=== PATIENT | male | born 1960 | race Caucasian/White ===

== ENCOUNTER 2020-07-19 13:55 | Outpatient (CLI) | payer BC, SELFPAY ==
--- NOTE | ~2020-07-19 | US_ITS ---
EXAMINATION: US art doppler w press LE BI DATE: 07/19/2020 15:06 INDICATION: Claudication TECHNIQUE: Segmental pressures and plethysmographic and Doppler waveforms of the brachial and lower e xtremity arteries were obtained. COMPARISON: None. FINDINGS: Right and left brachial artery pressures of 123 mm Hg and 129 mm Hg, respectively, are concordant (no rmal difference <= 30 mmHg). The right and left high-thigh pressure indices are 1.12 and 1.33, respec tively (normal > 1.2). The right ankle-brachial index (FARZANA) is 1.21 (normal >= 0.9-1). The right great toe-brachial index (T BI) is 0.83 (normal >= 0.6-0.8). The right lower extremity segmental pressure gradients are normal (n ormal gradients <= 20-30 mmHg between adjacent levels on the same leg or the same levels on the two l egs). Arterial waveforms are triphasic with brisk systolic upstrokes throughout. The left FARZANA is 1.14. The left TBI is 0.63. The left lower extremity segmental pressure gradients are normal. Arterial waveforms are triphasic with brisk systolic upstrokes throughout. IMPRESSION: 1. Normal FARZANA's and TBI's bilaterally. No significant occlusive disease. Reviewed, dictated and finalized at location A.
== END 2020-07-19 13:56 | disposition home or self-care (01) ==
PROVIDERS: PCP Internal Medicine Geriatric Medicine; Visit Provider Internal Medicine Cardiovascular Disease
DX: I73.9 Peripheral vascular disease, unspecified (principal); Z86.73 Personal history of transient ischemic attack (TIA), and cerebral infarction without residual deficits
CPT/HCPCS: 93923

== ENCOUNTER 2023-08-08 01:17 | Day surgery (SDC) | payer BC, SELFPAY ==
[2023-08-08] VITALS (14 sets, daily range): BP systolic 108–152; BP diastolic 77–92; PULSE 75–91; RESP 12–20; TEMP 36.5; O2SAT 95–100; BMI 26.1
--- NOTE | 2023-08-08 09:02 | WPDHPUPDATE1 ---
History and Physical Update Update Date/Time: 08/08/23 09:02 History and Physical has been reviewed, including an updated exam of the patient. There are NO changes in the patient's condition. Risks, benefits, and alternatives have been discussed and questions answered. Patient agrees to proceed with procedure.
--- NOTE | 2023-08-08 09:02 | WPDMODSED ---
Moderate Sedation Note-Pt Data Patient Data Diagnosis: Mitral valve prolapse, mitral regurgitation Present Complaint: None Procedure to be performed/Plan: Transesophageal echocardiogram Allergies Allergy/AdvReac Type Severity Reaction Status Date / Time No Known Allergies Allergy Unverified 08/08/23 07:15 Home Medications Medication Instructions Recorded Confirmed Type amitriptyline 25 mg tablet 25 mg PO HS 08/07/23 08/07/23 History aspirin 81 mg tablet,delayed 81 mg PO HS 08/07/23 08/08/23 History release atorvastatin 80 mg tablet 80 mg PO HS 08/07/23 08/07/23 History citalopram 40 mg tablet 40 mg PO DAILY 08/07/23 08/07/23 History cyanocobalamin (vitamin B-12) 1,000 mcg IM MONTHLY 08/07/23 08/07/23 History 1,000 mcg/mL injection solution docusate sodium 50 mg/5 mL oral 100 mg PO HS PRN Constipation 08/07/23 08/07/23 History liquid ergocalciferol (vitamin D2) 1,250 50,000 unit PO WEEKLY 08/07/23 08/07/23 History mcg (50,000 unit) capsule lansoprazole 30 mg capsule,delayed 30 mg PO BID 08/07/23 08/07/23 History release melatonin 10 mg tablet 20 mg PO HS PRN Insomnia 08/07/23 08/07/23 History meloxicam 15 mg tablet 15 mg PO DAILY PRN Pain 08/07/23 08/07/23 History ramipril 2.5 mg capsule 205 mg PO DAILY 08/07/23 08/07/23 History tamsulosin 0.4 mg capsule 0.4 mg PO DAILY 08/07/23 08/07/23 History tramadol 50 mg tablet 50 mg PO Q4-6H PRN Pain 08/07/23 08/07/23 History zolpidem 5 mg tablet 25 mg PO HS PRN Insomnia 08/07/23 08/07/23 History Current Medications: Active Medications Sodium Chloride (Normal Saline Iv) 1,000 mls @ 30 mls/hr IV CONT .Q24H RHEA Sedation/Anesthesia: No previous sedation/anesthesia problems (including family history). [facility] Past Medical History Medical History (Updated 08/08/23 @ 09:04 by Angel Chiang MD) Mitral regurgitation Mitral valve prolapse Family History Family History Father Hypertension Other Diabetes mellitus Family history of cardiovascular disease Social History Social History Smoking status: Never smoker Alcohol intake: never Substance use type: marijuana Other substance usage details: pot gummies Living arrangements: with family Spiritual care concerns: No Mod Sed Physical Exam Physical Exam Pre Procedural Exam: Normal: Appearance, Eyes, Ears, Nose, Neck (Supple, normal range of motion), Throat (Posterior hypopharynx clear, nonerythematous), Airway (Normal anatomy, no obstruction), Lungs (Clear to auscultation bilaterally), Heart Size (Systolic murmur), Heart Rate, Heart Rhythm, Neuro Exam, Abdomen, Liver, Extremities and Skin Hours since solid foods: 12 Hours since liquid intake: 12 Mallampati Classification: class III Internal Medicine - PN: Obj Da Vital Signs Vital Signs: Vital Signs - 24 hr 08/08/23 07:17 Temperature 36.5 C Pulse Rate 88 Respiratory Rate 15 Blood Pressure 145/89 H Pulse Oximetry 98 Oxygen Delivery Room Air Meds/Results Medications: Active Medications Generic Name Dose Route Start Last Admin Trade Name Freq PRN Reason Stop Dose Admin Sodium Chloride 1,000 mls @ 30 mls/hr 08/08/23 07:30 Normal Saline Iv IV CONT .Q24H RHEA ASA Classification/Sedation ASA Classification/Sedation ASA Class: III Emergent: No Risks: Risks, benefits and alternatives explained and patient/family accepted plan for sedation. Patient re-evaluated immediately prior to sedation.
--- NOTE | 2023-08-08 14:29 | WPDTEECHO ---
[facility] TransEsophageal Echocardiogram Date of procedure: 08/08/23 Procedure Type: Transesophageal echocardiogram Diagnosis: Mitral valve prolapse, mitral regurgitation Indications: Mitral regurgitation, shortness of breath Image Quality: Technically difficult Findings: Brief history present illness: Patient is a pleasant 62-year-old male with a past medical history significant for mitral valve prolapse with mitral regurgitation, prior history of CVA, hypertension, hyperlipidemia who presents with progressive fatigue, exertional dyspnea and intermittent chest pain who underwent noninvasive ischemic evaluation which was not suggestive of myocardial ischemia yet 2D echocardiogram obtained interpreted as having severe mitral regurgitation. As such, patient was subsequently referred for transesophageal echocardiogram to clarify severity of mitral regurgitation. Procedure in detail: After verbal and written informed consent was obtained the patient risks, benefits, and alternatives explained in detail the patient agreed to proceed with the plan of care as outlined above. The patient was evaluated at bedside in the [facility] procedure room. The posterior oropharynx, neck, and jaw angle all within normal limits on examination. Lungs were clear to auscultation. See pre-sedation note for further details The patient was then placed in the appropriate 30 to 45 degree angle supine position at a slight left lateral decubitus position. Patient was monitored throughout the study with telemetry, oxygen saturation, end-tidal CO2 monitoring, blood pressure, heart rate, and respirations. The posterior hypopharynx was then locally anesthetized using repeated administration of Hurricaine spray as well as gargled viscous lidocaine. After local anesthetic of the posterior hypopharynx was achieved and the oral bite block placed, moderate sedation was administered. After confirmation of adequate moderate sedation, the transesophageal echocardiogram probe was advanced through the oral bite block into the posterior hypopharynx and into the esophagus easily and without complication. Multiple, multiplanar echocardiographic images were obtained in multiple standard re- projections. Pulsed wave, continuous-wave, and color-flow Doppler were utilized in conjunction with this study. At the conclusion of the study, the transesophageal echocardiogram probe was removed easily and without complication. The patient tolerated the procedure well without difficulty. Patient was in sinus rhythm throughout the study. Moderate Sedation/Anesthesia administration: Patient reports no prior problems with sedation/anesthesia. Please see pre-sedation noted for physical examination documentation. As noted above, after adequate local anesthesia of the posterior hypopharynx was achieved, a total of 3 mg intravenous Versed and a total of 75 mcg intravenous Fentanyl in multiple divided doses was administered for moderate sedation. Sedation start time was 0910 and end time was 0950 for a total intra-service/procedure face-face time of 40 minutes. Sedation was administered by a qualified/certified observer Vanesa Mandel RN under my supervision with intra-procedure [id number] observation and management throughout the entirety of the procedure. There were no other issues or complications and patient tolerated the procedure well. See post-anesthesia documentation. FINDINGS: LEFT VENTRICLE: Size and systolic function were within normal limits without wall motion abnormalities with ejection fraction of 65% and mild concentric left ventricular hypertrophy. RIGHT VENTRICLE: Size and systolic function within normal limits. LEFT ATRIUM: Mild to moderately enlarged. RIGHT ATRIUM: Normal size. INTERATRIAL SEPTUM: Interatrial septum was difficult to visualize, however, appeared to be anatomically normal without evidence of shunt with color-flow Doppler. MITRAL VALVE: Mitral valve appears
== END 2023-08-08 11:15 | disposition home or self-care (01) ==
PROVIDERS: PCP Internal Medicine Geriatric Medicine; Visit Provider Internal Medicine Cardiovascular Disease
PROC: (CPT 93312; principal; 2023-08-08 08:30)
DX: I08.3 Combined rheumatic disorders of mitral, aortic and tricuspid valves (principal); R06.02 Shortness of breath; I10 Essential (primary) hypertension; E78.5 Hyperlipidemia, unspecified; Z86.73 Personal history of transient ischemic attack (TIA), and cerebral infarction without residual deficits; Z79.82 Long term (current) use of aspirin; F12.90 Cannabis use, unspecified, uncomplicated
CPT/HCPCS: 93312; 93320; 93325; J2250; J2704; J3010; J7030

== ENCOUNTER 2023-12-23 13:25 | Outpatient (CLI) | payer BC, SELFPAY ==
--- NOTE | ~2023-12-23 | XR_ITS ---
EXAMINATION: XR chest 2V Exam Date/Time: 12/23/2023 13:32 SUPERVISING FILM OR VIDEOTAPE EDITOR HISTORY: [facility] (DYSPNEA ON EXERTION HEART SURGERY 10/12 Comparison: 05/01/2012. RESULT: Lines, tubes, and devices: ACDF hardware. Intact sternotomy wires. Cardiac valve replacement. Cholec ystectomy clips. Lungs and pleura: Clear. Cardiomediastinal silhouette: Stable. Other: No acute osseous or upper abdominal finding. Exaggerated thoracic kyphosis. Multilevel stable grade 1 thoracolumbar listheses. IMPRESSION: No acute cardiopulmonary process. Reviewed, dictated and finalized at location K. RVISING FILM OR VIDEOTAPE EDITOR
== END 2023-12-23 13:26 | disposition home or self-care (01) ==
LOC: ANHIMG 13:27
PROVIDERS: PCP Internal Medicine Geriatric Medicine; Visit Provider Internal Medicine Cardiovascular Disease
DX: R06.09 Other forms of dyspnea (principal)
CPT/HCPCS: 71046

== ENCOUNTER 2024-04-09 15:00 | Outpatient (RCR) | payer BC, SELFPAY | END 2024-04-09 16:49 | disposition home or self-care (01) | LOC: ANHCPREHAB 15:00 | PROVIDERS: PCP Internal Medicine Geriatric Medicine; Visit Provider Internal Medicine Cardiovascular Disease | DX: Z95.2 Presence of prosthetic heart valve (principal) | CPT/HCPCS: 93798 ==